=== PATIENT | female | born 1985 | race Caucasian/White ===

== ENCOUNTER 2017-04-12 18:03 | Emergency (ER) | payer SELFPAY ==
[~2017-04-12 18:03] MED LIST: IBUP800T23 PO; METH750T2 PO
[2017-04-12 18:05] VITALS: BP 134/83; PULSE 122; RESP 28; TEMP 102.3; O2SAT 93
== END 2017-04-12 20:28 | disposition left against medical advice (07) ==
LOC: NED 20:20
DX: R52 Pain, unspecified (principal); Z53.21 Procedure and treatment not carried out due to patient leaving prior to being seen by health care provider
CPT/HCPCS: 99281

== ENCOUNTER 2017-04-17 15:54 | Inpatient (IN) | payer SELFPAY ==
[~2017-04-17] VITALS: Ht 162.6 cm; Wt 70.0 kg
[2017-04-17 15:58] VITALS: BP 125/81; PULSE 128; RESP 16; TEMP 97.5; O2SAT 98
--- NOTE | 2017-04-17 16:19 | PD ---
Physical Exam Time Seen by Provider: 16:18 Narrative 31 y/o female recently left AMA from [facility] after being admitted for a "cavitary" lesion in the lung. She prefers this hospital and that is why she left. Record request from [facility] has been requested from triage. They will be faxed to the [employer] pod fax machine. Vital signs reviewed. Seen at triage desk. Awaiting bed placement. Data Data Last Documented VS Vital Signs Date Time Temp Pulse Resp B/P Pulse Ox O2 Delivery O2 Flow Rate FiO2 04/17/17 15:58 97.5 128 16 125/81 98 Orders Chest, Pa & Lat (04/17/17 ) [facility] Medical Record Reviewed: Yes Supervised Visit with SUSHIL: No Filiberto Encarnacion Apr 17, 2017 16:18
--- NOTE | 2017-04-17 16:49 | RADRPT ---
EXAM DATE/TIME: 04/17/2017 16:30 [facility] COMPARISON: No previous studies available for comparison. INDICATIONS : Chest pain and coughing. MEDICAL HISTORY : [place] was in [place] [facility] [place], possible pneumonia or TB. SURGICAL HISTORY : None. ENCOUNTER: Initial ACUITY: 1 week PAIN SCORE: 10/10 LOCATION: Right chest FINDINGS: PA and lateral views of the chest demonstrate basilar airspace disease with small effusions, right gr eater than left. No pneumothorax. Heart size normal. CONCLUSION: 1. Patchy basilar airspace disease and small effusions, right greater than left. Also minimal left ap ical opacity. Findings characteristic of reported history of pneumonia with small parapneumonic effus ion. Jake rBiseno MD on April 17, 2017 at 16:45 Board Certified Radiologist. This report was verified electronically.
[2017-04-17] MEDS ORDERED: SODIUM CHLORIDE 0.9% FLUSH 10 ML FLUSH IVF PRN (17:30)
[2017-04-17] MEDS ORDERED: ORPHENADRINE INJ 60 MG/2 ML AMP IV ONE (18:00)
[2017-04-17] MEDS ORDERED: KETOROLAC TROMETHAMINE 30 MG/ML (IVP) VIAL IV PUSH ONE (18:00)
--- NOTE | 2017-04-17 18:24 | PD ---
HPI Chief Complaint: Pain: Acute or Chronic Time Seen by Provider: 17:30 Travel History International Travel<30 days: No Contact w/Intl Traveler<30days: No Traveled to known affect area: No History of Present Illness HPI Patient is a 31-year-old female presenting to the emergency evaluation of shortness of breath, possible pneumonia, possible TB. Patient states she went [facility] 5 days ago with back pain and shortness of breath, she states that she had a thoracentesis performed and was suspected to have TB. Patient reports pain in her back is a 7 out of 10. Patient states the shortness of breath is mildly improved but she continues to be very fatigued, she reports decreased appetite, a productive cough with milan black sputum. She denies any fevers. She left AMA from [facility] last night. Patient has had a 20 pound weight loss in the last several months, she was incarcerated in [place] and released in July 2016 after 3 months today. Patient is a current daily tobacco user, she is a remote history of IV drug use as a teenager. Past medical history is also significant for hepatitis C and anxiety. [facility] Past Medical History Anemia: Yes Anxiety: Yes Depression: Yes Diabetes: No Diminished Hearing: No Headaches: Yes Hepatitis: Yes (C) Migraines: Yes ?: Not LMP: 04/10/17 : 0 Para: 0 Past Surgical History Other Surgery: Yes (EARS PINNED BACKWARDS) Social History Alcohol Use: Yes (OCC) Tobacco Use: Yes (1/2 PPD) Substance Use: Yes (HX OF IVDU) Allergies-Medications (Allergen,Severity, Reaction): Coded Allergies: Penicillin (Verified Allergy, Severe, RASH, 04/17/17) Sulfa (Verified Allergy, Severe, RASH, 04/17/17) Codeine (Verified Allergy, Intermediate, HIVES, 04/17/17) Reported Meds & Prescriptions Reported Meds & Active Scripts Active No Active Prescriptions or Reported Medications Review of Systems Except as stated in HPI: all other systems reviewed are Neg General / Constitutional: No: Fever HENT: No: Headaches, Lightheadedness Cardiovascular: Positive: Dyspnea on exertion Respiratory: Positive: Cough, Shortness of Breath, Pleuritic Pain Gastrointestinal: No: Nausea, Vomiting Musculoskeletal: No: Myalgias Neurologic: Positive: Weakness, No: Dizziness, Syncope, Focal Abnormalities Physical Exam Narrative GENERAL: Thin, well-developed, well-nourished, alert female. Resting comfortably in no acute distress. SKIN: Warm and dry. HEAD: Atraumatic. Normocephalic. EYES: Pupils equal and round. No scleral icterus. No injection or drainage. ENT: No nasal bleeding or discharge. Mucous membranes pink and moist. NECK: Trachea midline. No JVD. CARDIOVASCULAR: Tachycardic RESPIRATORY: No accessory muscle use. Diminished throughout. GASTROINTESTINAL: Abdomen soft, non-tender, nondistended. Hepatic and splenic margins not palpable. MUSCULOSKELETAL: Extremities without clubbing, cyanosis, or edema. No obvious deformities. NEUROLOGICAL: Awake and alert. No obvious cranial nerve deficits. Motor grossly within normal limits. Five out of 5 muscle strength in the arms and legs. Normal speech. PSYCHIATRIC: Appropriate mood and affect; insight and judgment normal. Data Data Last Documented VS Vital Signs Date Time Temp Pulse Resp B/P Pulse Ox O2 Delivery O2 Flow Rate FiO2 04/17/17 21:12 84 16 118/61 97 Room Air 04/17/17 15:58 97.5 Orders Chest, Pa & Lat (04/17/17 ) Complete Blood Count With Diff (04/17/17 17:29) Comprehensive Metabolic Panel (04/17/17 17:29) Lactic Acid Sepsis Protocol (04/17/17 17:29) Blood Culture (04/17/17 17:29) Ecg Monitoring (04/17/17 17:29) Iv Access Insert/Monitor (04/17/17 17:29) Oximetry (04/17/17 17:29) Sodium Chloride 0.9% Flush (Ns Flush) (04/17/17 17:30) Ketorolac Inj (Toradol Inj) (04/17/17 18:00) Orphenadrine Inj (Norflex Inj) (04/17/17 18:00) Precautions (04/17/17 18:25) Ct Thorax/ Chest W Iv Contrast (04/17/17 ) Ed Urine Pregnancytest Poc (04/17/17 18:43) Methylprednisolone So Succ Inj (Solumedr (04/17/17 19:30) Albuterol-Ipratropium Neb (Duoneb Neb) (04/17/17 19:30) Iohexol 350 Inj (Omnipaque 350 Inj) (04/17/17 19:55) Vancomycin Inj (Vancomycin Inj) (04/17/17 20:15) Aztreonam Inj (Azactam Inj) (04/17/17 20:11) Admit Order (Ed Use Only) (04/17/17 21:26) Potassium Chloride (Kcl) (04/17/17 21:30) Place In Observation (04/17/17 ) Vital Signs (Adult) Q4H (04/17/17 21:26) Activity Oob With Assistance (04/17/17 21:26) Air Valve Mechanic / Telemetry .CONTINUOUS (04/17/17 21:26) Diet Heart Healthy (04/18/17 Breakfast) Sodium Chloride 0.9% Flush (Ns Flush) (04/17/17 21:30) Sodium Chloride 0.9% Flush (Ns Flush) (04/18/17 09:00) Basic Metabolic Panel (Bmp) (04/18/17 06:00) Complete Blood Count With Diff (04/18/17 06:00) Case Management Consult (04/17/17 21:26) Naloxone Inj (Narcan Inj) (04/17/17 21:30) Albuterol-Ipratropium Neb (Duoneb Neb) (04/17/17 22:00) Albuterol-Ipratropium Neb (Duoneb Neb) (04/17/17 21:30) Labs Laboratory Tests Test 04/17/17 18:10 White Blood Count 11.4 TH/MM3 Red Blood Count 3.95 MIL/MM3 Hemoglobin 12.1 GM/DL Hematocrit 33.9 % Mean Corpuscular Volume 85.9 FL Mean Corpuscular Hemoglobin 30.6 PG Mean Corpuscular Hemoglobin 35.6 % Concent Red Cell Distribution Width 14.1 % Platelet Count 347 TH/MM3 Mean Platelet Volume 8.2 FL Neutrophils (%) (Auto) 63.4 % Lymphocytes (%) (Auto) 24.7 % Monocytes (%) (Auto) 7.9 % Eosinophils (%) (Auto) 3.5 % Basophils (%) (Auto) 0.5 % Neutrophils # (Auto) 7.2 TH/MM3 Lymphocytes # (Auto) 2.8 TH/MM3 Monocytes # (Auto) 0.9 TH/MM3 Eosinophils # (Auto) 0.4 TH/MM3 Basophils # (Auto) 0.1 TH/MM3 CBC Comment DIFF FINAL Differential Comment Sodium Level 137 MEQ/L Potassium Level 3.3 MEQ/L Chloride Level 103 MEQ/L Carbon Dioxide Level 26.9 MEQ/L Anion Gap 7 MEQ/L Blood Urea Nitrogen 10 MG/DL Creatinine 0.72 MG/DL Estimat Glomerular Filtration 96 ML/MIN Rate Random Glucose 112 MG/DL Lactic Acid Level 0.8 mmol/L Calcium Level 8.7 MG/DL Total Bilirubin 0.3 MG/DL Aspartate Amino Transf 20 U/L (AST/SGOT) Alanine Aminotransferase 18 U/L (ALT/SGPT) Alkaline Phosphatase 57 U/L Total Protein 7.5 GM/DL Albumin 2.9 GM/DL MDM Medical Decision Making Medical Screen Exam Complete: Yes Emergency Medical Condition: Yes Interpretation(s) Vital Signs Date Time Temp Pulse Resp B/P Pulse Ox O2 Delivery O2 Flow Rate FiO2 04/17/17 17:07 18 04/17/17 15:58 97.5 128 16 125/81 98 Differential Diagnosis Pneumonia versus pneumothorax versus PE versus TB versus other Narrative Course Patient is a 31-year-old female presenting to emergency for evaluation of back pain and shortness of breath. She reports leaving AMA from [facility] yesterday. She states that she was diagnosed with pneumonia, possible tuberculosis. Medical records have been requested. Labs and imaging ordered and pending. Patient was mildly tachycardic on arrival, she is well oxygenated on room air and afebrile. Patient denies any IV drug use. She reports the frazier on her arms are from lab draws at [facility]. Chest x-ray read by radiologist shows patchy basilar airspace disease and small effusion, right greater than left. Also minimal left apical obesity. Findings characteristic of pneumonia with small parapneumonic effusion. CBC w/ wbc 11.4, no left shift CMP w/ K+ of 3.3 Lactic Acid 0.8 Records obtained from [facility]. Pt was admitted and diagnosed with PNA, questionable septic emboli, kypokalemia, h/o IVDU, lung nodule. She had ID and pulmonary consults and was started on empiric abx. On 04/12/17: Urine drug screen was positive for cocaine and opiates. WBC 15.1, d-dimer 2.07, lactic acid 1.3 MRI of thoracic and lumbar spine negative for diskitis, echocardiogram with no vegetation. Trace to mild mitral and tricuspid regurgitation. HIV was negative. AFB stain- no acid fast bacilli seen. Blood cultures were neg x 5 days Sputum culture with moderate staph aureus. Pt started on vancomycin and azactam now. CT of the chest today read by radiologist shows Multifocal airspace consolidation most prominent at the left apex but also in the right middle and lower lobe. There may be early cavitation in the left apical consolidation. Findings are most consistent with bronchopneumonia or post aspiration changes with small loculated right pleural effusion and trace pericardial fluid. Mild right hilar adenopathy. Pt placed on contact precautions due to positive sputum culture. Discussed with Dr. Schmitt who accepted admit, orders placed. Diagnosis Primary Impression: Bronchopneumonia Additional Impression: Hypokalemia Admitting Information Admitting Physician Requests: Admit Scripts No Active Prescriptions or Reported Meds Condition: Stable Sunshine Wharton [facility] Apr 17, 2017 18:24
[2017-04-17 18:37] LABS: AUTOMATED NEUTROPHIL # 7.2 TH/MM3 (1.8-7.7); BASOPHIL # 0.1 TH/MM3 (0-0.2); BASOPHIL % 0.5 % (0.0-2.0); EOSINOPHIL # 0.4 TH/MM3 (0-0.4); EOSINOPHIL % 3.5 % (0.0-4.0); HEMATOCRIT 33.9 % (35.0-46.0); HEMO FLAGS DIFF FINAL; LYMPH % 24.7 % (9.0-44.0); LYMPHOCYTE # 2.8 TH/MM3 (1.0-4.8); MEAN CELL VOLUME 85.9 FL (80.0-100.0); MEAN CORPUSCULAR HEMOGLOBIN 30.6 PG (27.0-34.0); MEAN CORPUSCULAR HGB CONC 35.6 % (32.0-36.0); MONO % 7.9 % (0.0-8.0); NEUT % 63.4 % (16.0-70.0); PLATELET COUNT 347 TH/MM3 (150-450); RED BLOOD COUNT 3.95 MIL/MM3 (4.00-5.30); RED CELL DISTRIBUTION WIDTH 14.1 % (11.6-17.2); WHITE BLOOD COUNT 11.4 TH/MM3 (4.0-11.0)
[2017-04-17 18:48] LABS: ALT (GPT) 18 U/L (10-53)
[2017-04-17 18:50] LABS: ALKALINE PHOSPHATASE 57 U/L (45-117); TOTAL BILIRUBIN ADULT 0.3 MG/DL (0.2-1.0)
[2017-04-17 18:51] LABS: ANION GAP 7 MEQ/L (5-15); AST (GOT) 20 U/L (15-37); BICARBONATE 26.9 MEQ/L (21.0-32.0); BLOOD UREA NITROGEN 10 MG/DL (7-18); CHLORIDE 103 MEQ/L (98-107); GLOMERULAR FILTRATION RATE 96 ML/MIN (>89); POTASSIUM 3.3 MEQ/L (3.5-5.1); SODIUM (NA) 137 MEQ/L (136-145)
[2017-04-17 18:57] VITALS: BP 114/67; PULSE 88; RESP 16; O2SAT 96
[2017-04-17] MEDS ORDERED: methylPREDNISolone SOD SUCC 125 MG/2 ML VIAL IV PUSH ONE (19:30)
[2017-04-17] MEDS ORDERED: IOHEXOL 350 MG/ML 10 ML VIAL (for RAD DIAG) IV ONE (19:55)
[2017-04-17] MEDS ORDERED: AZTREONAM INJ 2,000 MG in SODIUM CHLORIDE 0.9% INJ 100 ML IV STA (20:11)
[2017-04-17] MEDS ORDERED: VANCOMYCIN INJ 1,000 MG in SODIUM CHLOR 0.9% 250 ML INJ 250 ML IV ONE (20:15)
[2017-04-17] MEDS: RESP: ALBUTEROL 2.5 MG/IPRATROPIUM 0.5 MG NEB (SCH) INH ×2 (20:25→20:40)
--- NOTE | 2017-04-17 20:41 | RADRPT ---
EXAM DATE/TIME: 04/17/2017 19:49 [facility] COMPARISON: No previous studies available for comparison. INDICATIONS : Short of breath. IV CONTRAST: 60 cc Omnipaque 350 (iohexol) IV RADIATION DOSE: 5.17 CTDIvol (mGy) MEDICAL HISTORY : Hepatitis C. Anemia, Cavitary lesion of the lung. SURGICAL HISTORY : None. ENCOUNTER: Initial ACUITY: 1 day PAIN SCALE: 9/10 LOCATION: Bilateral chest TECHNIQUE: Volumetric scanning of the chest was performed. Using automated exposure control and adjustment of t he mA and/or kV according to patient size, radiation dose was kept as low as reasonably achievable to obtain optimal diagnostic quality images. DICOM format image data is available electronically for review and comparison. Follow-up recommendations for incidentally detected pulmonary nodules are based at a minimum on nodul e size and patient risk factors according to Fleischner Society Guidelines. FINDINGS: There is focal consolidation at the left lung apex measuring up to 4.4 cm in diameter. There is also air space consolidation in the right middle lobe measuring up to 4.5 cm in diameter and in the physicist light and optics ior right lower lobe with small right-sided pleural effusion it is probably at least partially locula chano. Minimal subsegmental left basilar airspace disease as well. Mildly enlarged right hilar lymph nodes are present. Trace pericardial effusion. No acute findings in the upper abdomen. CONCLUSION: 1. Multifocal airspace consolidation most prominent at the left apex but also the right middle lobe a nd right lower lobe. There may be some early cavitation in the left apical consolidation. Findings ar e most characteristic of bronchopneumonia or post-aspiration changes with small loculated right pleur al effusion and trace pericardial fluid. Mild right hilar adenopathy. Jake Briseno MD on April 17, 2017 at 20:35 Board Certified Radiologist. This report was verified electronically.
[2017-04-17 21:12] VITALS: BP 118/61; PULSE 84; RESP 16; O2SAT 97
[2017-04-17] MEDS ORDERED: POTASSIUM CHLORIDE 20 MEQ CONTROLLED RELEASE TAB PO ONE (21:30)
[2017-04-17] MEDS ORDERED: SODIUM CHLORIDE 0.9% FLUSH 10 ML FLUSH IV FLUSH PRN (21:30)
[2017-04-17] MEDS ORDERED: RESP: ALBUTEROL 2.5 MG/IPRATROPIUM 0.5 MG NEB (PRN) NEB (21:30)
[2017-04-17] MEDS ORDERED: NALOXONE HCL 0.4 MG/ML AMP IV PRN (21:30)
[2017-04-18 01:33] VITALS: BP 122/68; PULSE 67; RESP 18; TEMP 97.7; O2SAT 97
[2017-04-18] MEDS: RESP: ALBUTEROL 2.5 MG/IPRATROPIUM 0.5 MG NEB (SCH) NEB ×2 (03:46→08:09)
[2017-04-18 04:05] VITALS: PULSE 82
[2017-04-18 05:56] VITALS: BP 128/72; PULSE 75; RESP 18; TEMP 98.4; O2SAT 97
[2017-04-18 07:35] VITALS: BP 96/64; PULSE 71; RESP 18; TEMP 97.8; O2SAT 96
[2017-04-18 08:05] VITALS: PULSE 72
[2017-04-18] MEDS ORDERED: SODIUM CHLORIDE 0.9% FLUSH 10 ML FLUSH IV FLUSH SCH (09:00)
[2017-04-18 09:30] LABS: POTASSIUM 5.3 MEQ/L (3.5-5.1)
--- NOTE | 2017-04-18 10:36 | HHI.HP ---
[facility] Service [facility] Primary [facility] Physician No Primary Care Physician Admission Diagnosis BRONCHOPNEUMONIA Diagnoses: Chief Complaint: Shortness of breath. Travel History International Travel<30 Days: No Contact w/Intl Traveler <30 Da: No Traveled to Known Affected Are: No History of Present Illness 31-year-old female with history of IV drug abuse presents to the emergency room for evaluation of possible pneumonia and shortness of breath. The patient was at [facility] 5 days ago with complaint of upper back pain and shortness of breath. She was found to have a pleural effusion and underwent thoracentesis and there was concern for TB. However she left AMA from [facility] last night. She does have a history of incarceration. She continues to smoke tobacco and reports the last time she used IV heroin was about a month ago. I have reviewed all the available records extensively from [facility]. Apparently the patient was admitted for pneumonia with questionable septic emboli. She underwent thoracentesis. The fluid and AFB stain so far negative. MRI of the lumbar and thoracic strain and were unremarkable. She had a negative echocardiogram and her blood cultures were negative. Sputum culture did grow staph aureus. Currently she reports a mild cough. She is on room air. Review of Systems Constitutional: DENIES: Fever, Chills Respiratory: COMPLAINS OF: Cough, Sputum production, Shortness of breath Cardiovascular: DENIES: Chest pain, Palpitations Musculoskeletal: COMPLAINS OF: Muscle aches Psychiatric: COMPLAINS OF: Anxiety Except as stated in HPI: all other systems reviewed are Neg Past Family Social History Past Medical History Anxiety Depression Migraines Past Surgical History Ear surgery. Reported Medications Reported Meds & Active Scripts Active No Active Prescriptions or Reported Medications Allergies: Coded Allergies: Penicillin (Verified Allergy, Severe, RASH, 04/17/17) Sulfa (Verified Allergy, Severe, RASH, 04/17/17) Codeine (Verified Allergy, Intermediate, HIVES, 04/17/17) Family History Reviewed and noncontributory. Social History Patient admits to smoking half a pack per day. Admits to occasional alcohol. She reports her last IV drug use was about a month ago. Her drug of choice is heroin. Physical Exam Vital Signs Vital Signs Date Time Temp Pulse Resp B/P Pulse Ox O2 Delivery O2 Flow Rate FiO2 04/18/17 07:35 97.8 71 18 96/64 96 04/18/17 05:56 98.4 75 18 128/72 97 04/18/17 04:05 82 04/18/17 01:33 97.7 67 18 122/68 97 04/17/17 21:12 84 16 118/61 97 Room Air 04/17/17 18:57 88 16 114/67 96 Room Air 04/17/17 17:07 18 04/17/17 15:58 97.5 128 16 125/81 98 Physical Exam GENERAL: This is a well-nourished, well-developed patient, in no apparent distress. SKIN: No rashes, ecchymoses or lesions. Cool and dry. HEAD: Atraumatic. Normocephalic. No temporal or scalp tenderness. EYES: Pupils equal round and reactive. Extraocular motions intact. No scleral icterus. No injection or drainage. ENT: Nose without bleeding, purulent drainage or septal hematoma. Throat without erythema, tonsillar hypertrophy or exudate. Uvula midline. Airway patent. NECK: Trachea midline. No JVD or lymphadenopathy. Supple, nontender, no meningeal signs. CARDIOVASCULAR: Regular rate and rhythm without murmurs, gallops, or rubs. RESPIRATORY: Diminished breath sounds bilaterally otherwise Clear to auscultation. No wheezes, rales, or rhonchi. GASTROINTESTINAL: Abdomen soft, non-tender, nondistended. No hepato-splenomegaly , or palpable masses. No guarding. MUSCULOSKELETAL: Extremities without clubbing, cyanosis, or edema. No joint tenderness, effusion, or edema noted. No calf tenderness. Negative Homans sign bilaterally. NEUROLOGICAL: Awake and alert. Cranial nerves II through XII intact. Motor and sensory grossly within normal limits. Five out of 5 muscle strength in all muscle groups. Normal speech. Laboratory Laboratory Tests Test 04/17/17 04/18/17 18:10 07:30 White Blood Count 11.4 Red Blood Count 3.95 Hemoglobin 12.1 Hematocrit 33.9 Mean Corpuscular Volume 85.9 Mean Corpuscular Hemoglobin 30.6 Mean Corpuscular Hemoglobin 35.6 Concent Red Cell Distribution Width 14.1 Platelet Count 347 Mean Platelet Volume 8.2 Neutrophils (%) (Auto) 63.4 Lymphocytes (%) (Auto) 24.7 Monocytes (%) (Auto) 7.9 Eosinophils (%) (Auto) 3.5 Basophils (%) (Auto) 0.5 Neutrophils # (Auto) 7.2 Lymphocytes # (Auto) 2.8 Monocytes # (Auto) 0.9 Eosinophils # (Auto) 0.4 Basophils # (Auto) 0.1 CBC Comment DIFF FINAL Differential Comment Sodium Level 137 136 Potassium Level 3.3 5.3 Chloride Level 103 104 Carbon Dioxide Level 26.9 24.0 Anion Gap 7 8 Blood Urea Nitrogen 10 12 Creatinine 0.72 0.64 Estimat Glomerular Filtration 96 110 Rate Random Glucose 112 135 Lactic Acid Level 0.8 Calcium Level 8.7 8.8 Total Bilirubin 0.3 Aspartate Amino Transf 20 (AST/SGOT) Alanine Aminotransferase 18 (ALT/SGPT) Alkaline Phosphatase 57 Total Protein 7.5 Albumin 2.9 Date/Time Procedure Status Source Growth 04/17/17 18:45 Aerobic Blood Culture Received Blood Peripheral Pending 04/17/17 18:45 Anaerobic Blood Culture Received Blood Peripheral Pending Result Diagram: 04/17/17 1810 04/18/17 0730 Imaging Last Impressions Chest X-Ray 04/17/17 0000 Signed Impressions: Service Date/Time: Monday, April 17, 2017 16:30 - CONCLUSION: 1. Patchy basilar airspace disease and small effusions, right greater than left. Also minimal left apical opacity. Findings characteristic of reported history of pneumonia with small parapneumonic effusion. Jake Briseno MD Chest CT 04/17/17 0000 Signed Impressions: Service Date/Time: Monday, April 17, 2017 19:49 - CONCLUSION: 1. Multifocal airspace consolidation most prominent at the left apex but also the right middle lobe and right lower lobe. There may be some early cavitation in the left apical consolidation. Findings are most characteristic of bronchopneumonia or post-aspiration changes with small loculated right pleural effusion and trace pericardial fluid. Mild right hilar adenopathy. Jake Briseno MD Assessment and Plan Problem List: (1) Bronchopneumonia ICD Code: J18.0 Status: Acute Plan: CT of the chest shows multifocal air space consolidation, some early cavitation. Small loculated right pleural effusion and trace pericardial fluid. Patient received a dose of vancomycin and aztreonam. ID consulted for guidance on antibiotics. Continue supportive care with supplemental oxygen as needed Incentive spirometry. Encourage ambulation. - Follow blood cultures (2) Cavitary lesion of lung ICD Code: J98.4 Status: Acute Plan: See above (3) IV drug user ICD Code: F19.90 Status: Acute Plan: Patient counseled on the detrimental effects on her health. She was advised to quit. (4) Hypokalemia ICD Code: E87.6 Status: Acute Plan: Saritha initially low. This was replaced. Potassium currently slightly elevated. Follow-up BMP in am. Physician Certification 2 Midnight Certification Type: Admission for Inpatient Services Order for Inpatient Services The services are ordered in accordance with Medicare regulations or non- Medicare payer requirements, as applicable. In the case of services not specified as inpatient-only, they are appropriately provided as inpatient services in accordance with the 2-midnight benchmark. Estimated LOS (days): 3 days is the estimated time the patient will need to remain in the hospital, assuming treatment plan goals are met and no additional complications. Post-Hospital Plan: Home Mary Jane Gordon MD Apr 18, 2017 10:36
[2017-04-18 13:35] VITALS: BP 119/71; PULSE 104; RESP 16; TEMP 98.2; O2SAT 98
== END 2017-04-18 17:34 | disposition left against medical advice (07) | DRG 195 ==
LOC: NEPC 15:54 → NEDA 21:39 → NEPFCDU 23:51
PROVIDERS: ADMIT Family Medicine; ATTEND Family Medicine
DX: J18.0 Bronchopneumonia, unspecified organism (principal); B19.20 Unspecified viral hepatitis C without hepatic coma; E87.6 Hypokalemia; J98.4 Other disorders of lung; F17.210 Nicotine dependence, cigarettes, uncomplicated; F41.9 Anxiety disorder, unspecified
CPT/HCPCS: 71020; 71260; 80048; 80053; 83605; 84703; 85025; 87040; 94640; 94664; J1885; J2360; J2930; J3370; J7050; Q9967

== ENCOUNTER 2018-05-28 14:41 | Inpatient (IN) ==
[2018-05-28] MEDS ORDERED: Sod Chloride 0.9% Inj 1,000 ML IV.SIG ONE (16:38)
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
[2018-05-28 17:13] LABS: Baso % (Auto) 0.1 % (0.0-2.0); Hematocrit 39.1 % (35.0-46.0); Hemoglobin 13.4 gm/dL (11.6-15.3); Lymph # (Auto) 1.2 th/mm3 (1.0-4.8); Lymph % (Auto) 10.3 % (9.0-44.0); Mean Corpuscular HGB Conc 34.1 % (32.0-36.0); Mean Corpuscular Hemoglobin 30.6 pg (27.0-34.0); Mean Corpuscular Volume 89.6 fL (80.0-100.0); Mean Platelet Volume 7.8 fL (7.0-11.0); Mono # (Auto) 0.6 th/mm3 (0.0-0.9); Mono % (Auto) 5.7 % (0.0-8.0); Neut # (Auto) 9.6 th/mm3 (1.8-7.7); Neut % (Auto) 83.9 % (16.0-70.0); Platelet Count 231 th/mm3 (150-450); Red Blood Count 4.37 mil/mm3 (4.00-5.30); Red Cell Distribution Width 14.5 % (11.6-17.2); White Blood Count 11.5 th/mm3 (4.0-11.0)
[2018-05-28 17:21] LABS: Amphetamine Screen,Urine Neg (Neg); Barbiturate Screen,Urine Neg (Neg); Cannabinoid Screen,Urine Neg (Neg); Cocaine Screen,Urine Pos (Neg)
[2018-05-28 17:22] LABS: Alanine Aminotransferase 154 U/L (10-53); Amylase 54 U/L (25-115); Anion Gap 9 meq/L (5-15); Aspartate Aminotransferase 156 U/L (15-37); Blood Urea Nitrogen 17 mg/dL (7-18); Carbon Dioxide 26.5 meq/L (21.0-32.0); Chloride 104 meq/L (98-107); Glomerular Filtration Rate 65 mL/min (>89); Glucose,Random 99 mg/dL (74-106); Potassium 3.6 meq/L (3.5-5.1); Sodium 139 meq/L (136-145)
[2018-05-28 17:22] LABS: Opiate Screen,Urine Pos (Neg)
[2018-05-28 17:23] LABS: Bacteria,Urine Rare /hpf; Bilirubin,Urine Negative (Negative); Clarity,Urine Cloudy (Clear); Color,Urine Amber (Yellw/Straw); Glucose,Urine (UA) Negative (Negative); Leukocyte Esterase,Urine Negative (Negative); Mucus,Urine Many /lpf (Occasional); Nitrite,Urine Negative (Negative); Squamous Epithelial Cell,Urine 3 /hpf (0-5)
[2018-05-28 17:25] LABS: Alkaline Phosphatase 63 U/L (45-117); Total Protein 8.8 g/dL (6.4-8.2)
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
[2018-05-28] MEDS ORDERED: HYDROmorphone PF Inj 2 MG/ML Vial IV.PUSH ONE (21:00)
[2018-05-28] MEDS: Pantoprazole Inj 40 MG Vial IV.PUSH SCH (23:18)
[2018-05-28] MEDS: Sod Chloride 0.9% Inj 1,000 ML IV.CONT SCH (23:19)
[2018-05-29] MEDS: HYDROmorphone PF Inj 2 MG/ML Vial IV.PUSH PRN ×3 (00:58→08:39)
[2018-05-29] MEDS ORDERED: Chlorhexidine Gluconate 2% 1 Pack (2 Cloths) TOPICAL PRN (04:00)
[2018-05-29] MEDS: Chlorhexidine Gluconate 2% 1 Pack (2 Cloths) TOPICAL SCH (04:55)
[2018-05-29 05:22] LABS: Baso % (Auto) 0.2 % (0.0-2.0); Eos # (Auto) 0.1 th/mm3 (0.0-0.4); Eos % (Auto) 0.9 % (0.0-4.0); Hematocrit 36.2 % (35.0-46.0); Hemoglobin 12.3 gm/dL (11.6-15.3); Lymph # (Auto) 1.8 th/mm3 (1.0-4.8); Lymph % (Auto) 24.8 % (9.0-44.0); Mean Corpuscular Hemoglobin 30.1 pg (27.0-34.0); Mean Corpuscular Volume 88.5 fL (80.0-100.0); Mean Platelet Volume 8.1 fL (7.0-11.0); Mono # (Auto) 0.4 th/mm3 (0.0-0.9); Mono % (Auto) 5.6 % (0.0-8.0); Neut # (Auto) 4.9 th/mm3 (1.8-7.7); Neut % (Auto) 68.5 % (16.0-70.0); Platelet Count 183 th/mm3 (150-450); Red Blood Count 4.09 mil/mm3 (4.00-5.30); Red Cell Distribution Width 13.8 % (11.6-17.2); White Blood Count 7.1 th/mm3 (4.0-11.0)
[2018-05-29 05:43] LABS: Albumin 3.7 g/dL (3.4-5.0); Anion Gap 10 meq/L (5-15); Aspartate Aminotransferase 113 U/L (15-37); Blood Urea Nitrogen 11 mg/dL (7-18); Calcium 9.1 mg/dL (8.5-10.1); Carbon Dioxide 22.7 meq/L (21.0-32.0); Chloride 103 meq/L (98-107); Glomerular Filtration Rate 77 mL/min (>89); Glucose,Random 69 mg/dL (74-106); Potassium 3.4 meq/L (3.5-5.1); Sodium 136 meq/L (136-145)
[2018-05-29 05:45] LABS: Alanine Aminotransferase 125 U/L (10-53)
[2018-05-29 05:47] LABS: Alkaline Phosphatase 58 U/L (45-117); Total Protein 8.2 g/dL (6.4-8.2)
[2018-05-29] MEDS ORDERED: Naloxone Inj 0.4 MG/ML Vial IV.PUSH PRN (07:20)
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
[2018-05-29] MEDS: HYDROmorphone PCA Inj 6 MG/30 ML PCA.VIAL PCA PRN ×3 (08:23→21:11)
[2018-05-29] MEDS: Sod Chloride 0.9% Inj 1,000 ML IV.CONT SCH (09:37)
[2018-05-29] MEDS: Gabapentin 300 MG Capsule PO SCH ×2 (14:24→18:07)
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
[2018-05-29] MEDS: Senna/Docusate Sodium 8.6/50 MG Tablet PO SCH (20:57)
[2018-05-29] MEDS: Pantoprazole Inj 40 MG Vial IV.PUSH SCH (21:02)
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
[2018-05-30] MEDS: Chlorhexidine Gluconate 2% 1 Pack (2 Cloths) TOPICAL SCH (03:11)
[2018-05-30 05:29] LABS: Baso % (Auto) 0.6 % (0.0-2.0); Eos # (Auto) 0.2 th/mm3 (0.0-0.4); Eos % (Auto) 3.3 % (0.0-4.0); Hematocrit 35.4 % (35.0-46.0); Hemoglobin 11.9 gm/dL (11.6-15.3); Lymph # (Auto) 2.6 th/mm3 (1.0-4.8); Lymph % (Auto) 40.3 % (9.0-44.0); Mean Corpuscular HGB Conc 33.5 % (32.0-36.0); Mean Corpuscular Volume 89.6 fL (80.0-100.0); Mono # (Auto) 0.5 th/mm3 (0.0-0.9); Mono % (Auto) 8.4 % (0.0-8.0); Neut % (Auto) 47.4 % (16.0-70.0); Platelet Count 200 th/mm3 (150-450); Red Blood Count 3.95 mil/mm3 (4.00-5.30); Red Cell Distribution Width 14.1 % (11.6-17.2); White Blood Count 6.4 th/mm3 (4.0-11.0)
[2018-05-30 05:54] LABS: Calcium 8.9 mg/dL (8.5-10.1); Carbon Dioxide 25.4 meq/L (21.0-32.0); Potassium 3.7 meq/L (3.5-5.1)
[2018-05-30] MEDS: HYDROmorphone PCA Inj 6 MG/30 ML PCA.VIAL PCA PRN (06:54)
[2018-05-30] MEDS: Senna/Docusate Sodium 8.6/50 MG Tablet PO SCH ×2 (08:19→21:58)
[2018-05-30] MEDS: Gabapentin 300 MG Capsule PO SCH ×3 (08:20→17:05)
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
[2018-05-30] MEDS: Ketorolac Inj 30 MG/ML (IVP) Vial IV.PUSH SCH ×3 (10:00→21:58)
[2018-05-30] MEDS: oxyCODONE/Acetaminophen 10/325 Tablet PO PRN ×3 (10:05→18:59)
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
[2018-05-30] MEDS: HYDROmorphone PF Inj 2 MG/ML Vial IV.PUSH PRN ×3 (12:01→20:40)
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
[2018-05-31] MEDS: oxyCODONE/Acetaminophen 10/325 Tablet PO PRN ×4 (00:34→14:29)
[2018-05-31] MEDS: HYDROmorphone PF Inj 2 MG/ML Vial IV.PUSH PRN (01:43)
[2018-05-31] MEDS: Ketorolac Inj 30 MG/ML (IVP) Vial IV.PUSH SCH ×5 (02:59→14:23)
[2018-05-31] MEDS: Chlorhexidine Gluconate 2% 1 Pack (2 Cloths) TOPICAL SCH (05:03)
[2018-05-31] MEDS: Senna/Docusate Sodium 8.6/50 MG Tablet PO SCH ×2 (07:41→10:30)
[2018-05-31] MEDS: Gabapentin 300 MG Capsule PO SCH ×3 (07:41→12:03)
[2018-05-31 07:50] VITALS: O2SAT 98
[2018-05-31] MEDS ORDERED: HYDROmorphone PF Inj 1 MG/ML Ampul IV.PUSH PRN (08:00)
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
[2018-05-31] MEDS ORDERED: HYDROmorphone PF Inj 2 MG/ML Vial IV.PUSH PRN (12:00)
[2018-05-31 12:11] VITALS: BP 132/81; PULSE 91; RESP 18; TEMP 98.5
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
== END 2018-05-31 14:53 | disposition home or self-care (01) ==
LOC: NEPC 14:41 → NEDA 19:34 → N03 22:20 → N06 05-30 07:30
PROVIDERS: ADMIT Surgery; ATTEND Surgery